=== PATIENT | male | born 1945 | race Caucasian/White ===

== ENCOUNTER 2023-03-23 04:10 | Emergency (ER) | payer MEDICARE, OTHER ==
[~2023-03-23] VITALS: Ht 172.7 cm; Wt 61.2 kg
[2023-03-23] MEDS ORDERED: SPIR25 PO (06:30)
[2023-03-23] MEDS ORDERED: Amiodarone HCl200 MG PO (06:30)
[2023-03-23] MEDS ORDERED: CREON DR 12,001 EACH PO (06:31)
[2023-03-23] MEDS ORDERED: Aspir 8181 MG PO (06:31)
[2023-03-23] MEDS ORDERED: DRON2.5 PO (06:32)
[2023-03-23] MEDS ORDERED: DOCUZEN 8.6-501 EACH PO (06:32)
[2023-03-23] MEDS ORDERED: Voltaren100 GM TOP (06:32)
[2023-03-23] MEDS ORDERED: ELIQUIS5 M2 PO (06:33)
[2023-03-23] MEDS ORDERED: Prevacid Soluta30 MG JT (06:33)
[2023-03-23] MEDS ORDERED: MELA3 PO (06:33)
[2023-03-23] MEDS ORDERED: LIDO700A20 TOP (06:33)
[2023-03-23] MEDS ORDERED: MIRT15ST PO (06:34)
[2023-03-23] MEDS ORDERED: MIRALAX17 GM PO (06:34)
[2023-03-23] MEDS ORDERED: Crestor20 MG PO (06:35)
[2023-03-23] MEDS ORDERED: TORSE20 PO ×2 (06:36→06:37)
[2023-03-23] MEDS ORDERED: SODBIC650 PO (06:36)
[2023-03-23] MEDS ORDERED: TRANSDERM-SCOP1 EA13 TD (06:36)
[2023-03-23] MEDS ORDERED: ACET500 PO (06:37)
[2023-03-23 06:45] VITALS: BP 108/75
== END 2023-03-23 11:30 | disposition home or self-care (01) ==
LOC: ER 04:10
DX: K94.29 Other complications of gastrostomy (principal); I48.91 Unspecified atrial fibrillation; I13.2 Hypertensive heart and chronic kidney disease with heart failure and with stage 5 chronic kidney disease, or end stage renal disease; N18.6 End stage renal disease; I25.10 Atherosclerotic heart disease of native coronary artery without angina pectoris; I50.20 Unspecified systolic (congestive) heart failure; Z79.01 Long term (current) use of anticoagulants; Z79.82 Long term (current) use of aspirin; Z79.899 Other long term (current) drug therapy
CPT/HCPCS: 49465; 74018; 99283-25; Q9963

== ENCOUNTER 2023-04-02 16:01 | Emergency (ER) | payer OTHER ==
[~2023-04-02] VITALS: Ht 172.7 cm; Wt 65.8 kg
[~2023-04-02 16:01] MED LIST: ACET500 PO; Amiodarone HCl200 MG PO; Aspir 8181 MG PO; CREON DR 12,001 EACH PO; Crestor20 MG PO; DOCUZEN 8.6-501 EACH PO; DRON2.5 PO; ELIQUIS5 M2 PO; LIDO700A20 TOP; MELA3 PO; MIRALAX17 GM PO; MIRT15ST PO; Prevacid Soluta30 MG JT; SODBIC650 PO; SPIR25 PO; TORSE20 PO; TRANSDERM-SCOP1 EA13 TD; Voltaren100 GM TOP
[2023-04-02] MEDS ORDERED: Vitamin D1000 UNI1 PO (16:40)
[2023-04-02] MEDS ORDERED: DICLOFENAC SOD2.5 M1 BOTHEYES (16:42)
[2023-04-02] MEDS ORDERED: OMEP20ER PO (16:42)
[2023-04-02] MEDS ORDERED: PROC5 PO (16:43)
[2023-04-02] MEDS ORDERED: SODBIC650 PO (16:44)
[2023-04-02 18:54] LABS: Albumin, Blood 3.5 g/dL (3.4-5.0); Albumin/Globulin Ratio 0.8 (0.8-1.8); Bilirubin, Total 1.6 mg/dL (0.1-1.0); Bun/Creatinine Ratio 11.2 (12.0-20.0); Calcium, Blood 10.1 mg/dL (8.5-10.1); Creatinine, Blood 2.15 mg/dL (0.60-1.20); Globulin, Blood 4.6 g/dL (2.2-4.0); Potassium, Blood 3.8 mmol/L (3.5-5.5); Total Protein, Blood 8.1 g/dL (6.4-8.2)
[2023-04-02 21:13] LABS: Magnesium, Blood 2.4 mg/dL (1.6-2.4); Potassium, Blood 3.6 mmol/L (3.5-5.5)
[2023-04-02 21:46] LABS: BASOPHILS ABSOLUTE AUTO 0.01 K/mm3 (0.00-0.23); BASOPHILS PERCENT AUTO 0 % (0-2); EOSINOPHILS PERCENT AUTO 0 % (0-6); Hematocrit 32.4 % (37.0-53.0); Hemoglobin 10.4 g/dL (13.5-17.5); IMMATURE GRAN ABSOLUTE AUTO 0.02 K/mm3 (0.00-0.10); IMMATURE GRAN PERCENT AUTO 0 % (0-1); LYMPHOCYTES ABSOLUTE AUTO 0.89 K/mm3 (0.84-5.20); LYMPHOCYTES PERCENT AUTO 14 % (21-46); MONOCYTES ABSOLUTE AUTO 0.36 K/mm3 (0.16-1.47); MONOCYTES PERCENT AUTO 6 % (4-13); Mean Corpuscular HGB Conc 32.1 g/dL (31.5-36.5); Mean Corpuscular Volume 93 fL (80-100); Mean Platelet Volume 9.8 fL (9.1-12.4); NEUTROPHILS ABSOLUTE AUTO 5.27 K/mm3 (1.96-9.15); NEUTROPHILS PERCENT AUTO 80 % (41-73); Platelet Count 251 K/mm3 (150-400); RDW Coefficient Variation 18.9 % (11.7-14.2); RDW Standard Deviation 64.5 fL (35.1-46.3); Red Blood Cell Count 3.47 M/mm3 (4.30-5.90); White Blood Cell Count 6.55 K/mm3 (4.00-11.30)
[2023-04-02 22:45] VITALS: BP 101/62
[2023-04-03] MEDS ORDERED: SPIR25 PO (09:05)
[2023-04-03] MEDS ORDERED: ASPI81CH PO (09:06)
[2023-04-03] MEDS ORDERED: CREON DR 12,001 EACH PO (09:07)
[2023-04-03] MEDS ORDERED: MELA3 PO (09:09)
[2023-04-03] MEDS ORDERED: Voltaren100 GM TOP (09:09)
[2023-04-03] MEDS ORDERED: PROC5 PO (09:13)
== END 2023-04-02 22:55 | disposition home or self-care (01) ==
LOC: ER 16:01
PROVIDERS: Emergency Medicine
DX: E86.0 Dehydration (principal); R94.31 Abnormal electrocardiogram [ECG] [EKG]; K94.23 Gastrostomy malfunction; Y84.9 Medical procedure, unspecified as the cause of abnormal reaction of the patient, or of later complication, without mention of misadventure at the time of the procedure; I13.2 Hypertensive heart and chronic kidney disease with heart failure and with stage 5 chronic kidney disease, or end stage renal disease; N18.6 End stage renal disease; I50.20 Unspecified systolic (congestive) heart failure; I25.10 Atherosclerotic heart disease of native coronary artery without angina pectoris; I48.91 Unspecified atrial fibrillation; Z79.899 Other long term (current) drug therapy; Z79.82 Long term (current) use of aspirin; Z79.01 Long term (current) use of anticoagulants
CPT/HCPCS: 36415; 71045; 80053; 83735; 84132; 85025; A9270; J7030

== ENCOUNTER 2023-04-03 08:34 | Day surgery (SDC) | payer OTHER ==
[~2023-04-03] VITALS: Ht 172.7 cm; Wt 56.2 kg
[~2023-04-03 08:34] MED LIST changes: +DICLOFENAC SOD2.5 M1 BOTHEYES; +OMEP20ER PO; +PROC5 PO; +Vitamin D1000 UNI1 PO
[2023-04-03] MEDS ORDERED: SPIR25 PO (09:05)
[2023-04-03] MEDS ORDERED: ASPI81CH PO (09:06)
[2023-04-03] MEDS ORDERED: CREON DR 12,001 EACH PO (09:07)
[2023-04-03] MEDS ORDERED: Voltaren100 GM TOP (09:09)
[2023-04-03] MEDS ORDERED: MELA3 PO (09:09)
[2023-04-03] MEDS ORDERED: PROC5 PO (09:13)
--- NOTE | 2023-04-03 12:56 | NUR ---
PIV REMOVED, CATHETER INTACT. PEG TUBE IN PLACE, SITE C/D/I. PATIENT WHEELED TO HOSPITAL ENTRANCE. [facility] TRANSP[facility]ATION HOME.
== END 2023-04-03 12:56 | disposition home or self-care (01) ==
LOC: MHTC 08:34
DX: K94.23 Gastrostomy malfunction (principal); R62.7 Adult failure to thrive; I25.10 Atherosclerotic heart disease of native coronary artery without angina pectoris; I48.91 Unspecified atrial fibrillation; I13.2 Hypertensive heart and chronic kidney disease with heart failure and with stage 5 chronic kidney disease, or end stage renal disease; I50.20 Unspecified systolic (congestive) heart failure; N18.6 End stage renal disease; Z95.1 Presence of aortocoronary bypass graft; Z79.899 Other long term (current) drug therapy
CPT/HCPCS: 99152; 99153; C1769; C1887; J2250; J3010; J7030; Q9967

== ENCOUNTER 2023-05-11 20:09 | Emergency (ER) | payer OTHER ==
[~2023-05-11] VITALS: Ht 172.7 cm; Wt 57.6 kg
[~2023-05-11 20:09] MED LIST changes: +ASPI81CH PO
[2023-05-11] MEDS ORDERED: Ondansetron 4 MG SoluTab MM ONE (23:15)
[2023-05-11 23:29] VITALS: BP 98/60
== END 2023-05-12 02:45 | disposition home or self-care (01) ==
LOC: ER 20:09
DX: K94.13 Enterostomy malfunction (principal); Z79.899 Other long term (current) drug therapy; Z79.82 Long term (current) use of aspirin; I13.2 Hypertensive heart and chronic kidney disease with heart failure and with stage 5 chronic kidney disease, or end stage renal disease; I48.91 Unspecified atrial fibrillation; I50.20 Unspecified systolic (congestive) heart failure; N18.6 End stage renal disease
CPT/HCPCS: A9270

== ENCOUNTER 2023-09-19 15:53 | Emergency (ER) | payer OTHER ==
[~2023-09-19] VITALS: Ht 182.9 cm; Wt 63.5 kg
== END 2023-09-19 16:13 | disposition home or self-care (01) ==
LOC: ER 15:53
DX: K94.23 Gastrostomy malfunction (principal); I13.2 Hypertensive heart and chronic kidney disease with heart failure and with stage 5 chronic kidney disease, or end stage renal disease; I50.20 Unspecified systolic (congestive) heart failure; N18.6 End stage renal disease; I48.91 Unspecified atrial fibrillation; Z79.899 Other long term (current) drug therapy; Z79.82 Long term (current) use of aspirin
CPT/HCPCS: 43762; 99282-25

== ENCOUNTER 2023-09-20 09:58 | Emergency (ER) | payer OTHER ==
[~2023-09-20] VITALS: Ht 172.7 cm; Wt 59.0 kg
[2023-09-20 13:09] VITALS: BP 112/69
== END 2023-09-20 13:11 | disposition home or self-care (01) ==
LOC: ER 09:58
DX: Z43.1 Encounter for attention to gastrostomy (principal); I13.2 Hypertensive heart and chronic kidney disease with heart failure and with stage 5 chronic kidney disease, or end stage renal disease; I50.20 Unspecified systolic (congestive) heart failure; N18.6 End stage renal disease; I48.91 Unspecified atrial fibrillation; Z79.899 Other long term (current) drug therapy; Z79.82 Long term (current) use of aspirin
CPT/HCPCS: 49465; Q9963

== ENCOUNTER 2024-01-31 08:43 | Day surgery (SDC) | payer OTHER ==
[~2024-01-31] VITALS: Ht 172.7 cm; Wt 67.6 kg
[~2024-01-31 08:43] MED LIST changes: +CREON PO; +METO25ER PO
[2024-01-31 09:12] VITALS: BP 113/80
--- NOTE | 2024-01-31 10:23 | NUR ---
PATIENT BACK FROM GTUBE PLACEMENT AT 0955. NO SEDATION USED. PT NINO PROCEDURE WELL. DISCHARGE ORDERS RECEIVED TO DC PT HOME, OKAY TO USE GTUBE. VERBAL AND WRITTEN DC INFORMATION GIVEN TO PT WITH CLEAR UNDERSTANDING. PT DISCHARGED HOME IN STABLE CONDITION AT 1005.
== END 2024-01-31 13:05 | disposition home or self-care (01) ==
LOC: MHTC 08:43
DX: Z43.1 Encounter for attention to gastrostomy (principal); R62.7 Adult failure to thrive; R13.10 Dysphagia, unspecified; I13.2 Hypertensive heart and chronic kidney disease with heart failure and with stage 5 chronic kidney disease, or end stage renal disease; N18.6 End stage renal disease; I50.22 Chronic systolic (congestive) heart failure; I25.10 Atherosclerotic heart disease of native coronary artery without angina pectoris; I48.91 Unspecified atrial fibrillation; Z87.891 Personal history of nicotine dependence; Z79.01 Long term (current) use of anticoagulants; Z79.899 Other long term (current) drug therapy; Z95.1 Presence of aortocoronary bypass graft; Z88.8 Allergy status to other drugs, medicaments and biological substances
CPT/HCPCS: 49450; C1769; Q9967